=== PATIENT | male | born 1930 | race Caucasian/White ===

== ENCOUNTER → 2017-01-20 | Outpatient (CLI) | payer MEDICARE ==
[~2017-01-20] MED LIST: ALPR-236 PO; ASPI81TA43 PO; CHOL200014 PO; CLOP75TA33 PO; DICY10CA13 PO; FISH1CAP10 PO; LISI10TA7 PO; MULT-1243 PO; PANT20TA13 PO; SIMV40TA5 PO; VIT1TABL71 PO; [UNRECOGNIZED DRUG - CODE] PO
--- NOTE | 2017-01-20 12:42 | DI ---
Indication: ITS.REASON: M79.604 LEG PAIN; R89.9 ABNORMAL LAB US VENOUS DUPLEX, LOWER EXT RT: Comparison: None Technique: Real-time, color-flow and spectral Doppler analysis used to evaluate right lower extremity from the groin to the lower calf. Findings: Patient showed normal compression, augmentation and color flow Impression: No DVT currently appreciated. .
== END ==
LOC: IMA 11:50
PROVIDERS: ATTEND Family Medicine
DX: M79.604 Pain in right leg (principal); R89.9 Unspecified abnormal finding in specimens from other organs, systems and tissues

== ENCOUNTER → 2017-01-20 | Outpatient (CLI) | payer MEDICARE | LOC: LAB 10:12 | PROVIDERS: ATTEND Family Medicine | DX: R60.0 Localized edema (principal) | CPT/HCPCS: 36415; 85379 ==

== ENCOUNTER 2017-11-25 08:00 | Observation (INO) ==
[2017-11-25 08:03] VITALS: BMI 32.5
--- NOTE | 2017-11-25 08:08 | Cardiology History & Physical ---
History of Present Illness Chief complaint: Palpitations HPI: Eva is an 87 year old male who is well known to Dr. Hines with a history of PAF, carotid stenosis, CAD, CM, PVCs, HTN, HLD who reports he could feel his heart skipping and fluttering and was seen in the ED and sent to see Dr. Hines in the clinic. He is being admitted to observation for AAT on Amiodarone. Review of Systems - Constitutional Constitutional: Absent: chills, fatigue, fever(s) - EENMT Eyes: Absent: change in vision Balance: Absent: vertigo Mouth/Throat: Absent: sore throat - Cardiovascular Cardiovascular: Absent: chest pain, palpitations, syncope, dyspnea on exertion, orthopnea, edema Rhythm: Absent: abnormal rhythm Vascular: Absent: pedal edema - Respiratory Respiratory: Absent: cough, dyspnea, dyspnea on exertion - Gastrointestinal Gastrointestinal: Absent: abdominal pain, constipation, diarrhea, nausea, vomiting - Genitourinary Genitourinary: Absent: dysuria - Integumentary/Breasts Integumentary: Absent: rash - Neurological Neurological: Absent: dizziness - Endocrine Endocrine: Absent: palpitations PFSH Patient Stated Medical History Cardiac Arrhythmia Yes: A-FIB Hypertension Yes Gastroesophageal Reflux Yes Disease Other GI Yes: HERNIA Osteoarthritis Yes Shingles Yes Blood Transfusions Yes: WITH KNEE REPLACEMENT Clinic Medical History (Last Reviewed 08/10/17 @ 14:09 by LEESA Haley ) Hypertension (Chronic Medical) CAD (coronary artery disease) (Chronic Medical) Hypertriglyceridemia (Chronic Medical) GERD (gastroesophageal reflux disease) (Chronic Medical) Prostate cancer (Chronic Medical) Increased prostate specific antigen (PSA) velocity (Chronic Medical) Restless leg (Chronic Medical) Fatty tumor (Chronic Medical) Anemia (Chronic Medical) Colon tumor (Chronic Medical) Surgical History: cagb x6 arteries 1995 Family History: Family History (Last Updated 05/13/17 @ 09:11 by LEESA Bradford) Unknown High blood pressure Heart trouble Tumors - Social History Smoking status: Former smoker Substance use type: does not use Alcohol intake frequency: does not drink Medications Home Medications Medication Instructions Recorded Confirmed Type Cholecalciferol (Vitamin D3) 2,000 mg PO DAILY #0 09/08/16 11/25/17 History (Vitamin D3) apixaban (Eliquis)5 mg tablet 5 mg PO BID 08/27/17 11/25/17 History Dyazide (triamterene 37.5 1 cap PO DAILY #90 cap 10/07/17 11/25/17 Rx mg-hydrochlorothiazide 25 mg) capsule ALPRAZolam [Xanax] 0.5 mg PO HS 11/03/17 11/25/17 History Carvedilol 3.12 mg PO WS 11/03/17 11/25/17 History Lisinopril [Prinivil] 20 mg PO BID 11/03/17 11/25/17 History [place]-3/Dha/Epa/Fish Oil [Fish Oil 1 each PO DAILY 11/03/17 11/25/17 History 1,000 mg Softgel] Simvastatin [Zocor] 40 mg PO HS 11/03/17 11/25/17 History Carvedilol 6.25 mg PO DAILY 11/04/17 11/25/17 History Cetirizine HCl 10 mg PO BID 11/04/17 11/25/17 History Dicyclomine [Bentyl] 10 mg PO TID PRN 11/04/17 11/25/17 History Nitroglycerin [Nitrostat] 0.4 mg SL PRN PRN 11/04/17 11/24/17 History Pantoprazole Sodium 20 mg PO DAILY 11/04/17 11/25/17 History levothyroxine 25 mcg tablet 25 mcg PO DAILY #30 tab 11/11/17 11/25/17 Rx Hydrocodone/APAP *Ed Prepack* 1 tab PO Q6H PRN 11/24/17 11/24/17 History [[place] 5/325 *Ed Prepack*] Allergies Allergy/AdvReac Type Severity Reaction Status Date / Time Sulfa (Sulfonamide Allergy Mild RASH Verified 11/03/17 23:42 Antibiotics) Exam - Constitutional no acute distress, well nourished, cooperative - Routine HEENT Exam Head: Present: normocephalic ENT: Present: mucous membranes moist - Routine Neck Exam Absent: JVD, carotid bruit - Routine Chest/Breast/Axilla Exam Chest wall: Absent: tenderness - Routine Respiratory Exam Present: CTA bilaterally. Absent: rales, wheezes - Routine Cardiovascular Exam Present: RRR, S1, S2, no murmur. Absent: JVD - Routine Abdominal Exam Present: soft, normoactive bowel sounds - Routine Extremities Exam Present: no edema - Routine Skin Exam Present: intact, dry, warm - Routine Neurological Exam Present: alert, oriented X3 - Routine Psychiatric Exam Present: normal affect, normal thought process Results 11/25/17 08:15 11/26/17 04:00 Intake and Output 11/24/17 11/25/17 11/25/17 22:59 06:59 14:59 Other: Weight 214 lb 1.102 oz Patient Weight 11/26/17 06:59 Weight 214 lb 1.102 oz EKG interpretations - EKG EKG results cardiology: sinus rhythm EKG shows: bradycardia - Dysrhythmias Ventricular dysrhythmias: ventricular premature complexes - Blocks, axis, hypertrophy, ST abn AV and intraventricular conduction: left bundle branch block (fixed/intermittent , complete/incomplete) Hospital Course This is a general summary of the patient's hospital course. For more details refer to the complete medical record. Time spent with patient: 25 - 35 minutes Resuscitation Status: Full Code Assessment and Plan - Attestation Attestation Narrative: 11/26/17 07:48 Recommendation After examining the patient I agree with the above assessment. I am involved in the formulation of the patient's plan of care. - Assessment and Plan (1) Palpitations Current visit: Yes Status: Acute Feels heart skipping and fluttering - Denies chest pain or SOA - He is being admitted to observation for AAT on Amiodarone taper as ordered. - EKG Stat to confirm SR - CBC, CMP, TSH, MAG - Monitor cardiac telemetry - EKG in am (2) Paroxysmal atrial fibrillation Current visit: Yes Status: Acute He is being admitted to observation for AAT on Amiodarone. - EKG Stat to confirm SR - CBC, CMP, TSH, MAG - Monitor cardiac telemetry - EKG in am (3) Occlusion and stenosis of bilateral carotid arteries Current visit: Yes Status: Chronic Carotid duplex to be done outpatient (4) Atherosclerotic heart disease of [place] coronary artery without angina pectoris Current visit: Yes Status: Chronic Continue current therapy with routine monitoring (5) Cardiomyopathy Current visit: Yes Status: Chronic 2D echo before next visit (6) Ventricular premature depolarization Current visit: Yes Status: Chronic Continue current therapy, routine monitoring (7) Essential (primary) hypertension Current visit: Yes Status: Chronic Continue current therapy, routine monitoring (8) Mixed hyperlipidemia Current visit: Yes Status: Chronic PCP manages
[2017-11-25] MEDS ORDERED: AMIODARONE 200 MG TABLET PO SCH (09:00)
[2017-11-25] MEDS ORDERED: NITROGLYCERIN 0.4 MG SUBLINGUAL TABLET SL PRN (09:04)
[2017-11-25] MEDS ORDERED: DICYCLOMINE 10mg CAPSULE PO PRN (09:04)
[2017-11-25] MEDS ORDERED: POLYETHYL GLYCOL 3350 17gm PACKET PO PRN (17:00)
[2017-11-25] MEDS ORDERED: CARVEDILOL 6.25 MG TABLET PO SCH (17:30)
[2017-11-25] MEDS: LISINOPRIL 10 MG TABLET PO SCH (20:36)
[2017-11-25] MEDS: CETIRIZINE 10 MG TABLET PO SCH (20:39)
[2017-11-25] MEDS: APIXABAN 5 MG TABLET PO SCH (20:40)
[2017-11-25] MEDS: AMIODARONE 200 MG TABLET PO SCH (20:40)
[2017-11-25] MEDS ORDERED: SALINE FLUSH 10ml SYRINGE IV PRN (20:43)
[2017-11-25] MEDS ORDERED: SIMVASTATIN 40 MG TABLET PO SCH (21:00)
[2017-11-25] MEDS ORDERED: ALPRAZolam 0.5 MG TABLET PO SCH (21:00)
[2017-11-25] MEDS ORDERED: LISINOPRIL 20 MG TABLET PO SCH (21:00)
[2017-11-26] MEDS ORDERED: PANTOPRAZOLE 20 MG TABLET PO SCH (06:30)
[2017-11-26] MEDS ORDERED: LEVOTHYROXINE 25 MCG TABLET PO SCH (06:30)
[2017-11-26 07:09] VITALS: BP 138/68; RESP 18; TEMP 96.5; O2SAT 92
[2017-11-26 08:23] VITALS: PULSE 62
[2017-11-26] MEDS: AMIODARONE 200 MG TABLET PO SCH (08:25)
[2017-11-26] MEDS: APIXABAN 5 MG TABLET PO SCH (08:26)
[2017-11-26] MEDS: LISINOPRIL 10 MG TABLET PO SCH (08:26)
[2017-11-26] MEDS: CETIRIZINE 10 MG TABLET PO SCH (08:26)
[2017-11-26] MEDS ORDERED: OMEGA-3 ACID ESTERS 1 GM CAPSULE PO SCH (09:00)
[2017-11-26] MEDS ORDERED: TRIAMTERENE PO SCH (10:30)
[2017-11-26] MEDS ORDERED: HCTZ PO SCH (10:30)
== END 2017-11-26 10:08 | disposition home or self-care (01) ==
LOC: SRG
PROVIDERS: ADMIT Internal Medicine Cardiovascular Disease; ATTEND Internal Medicine Cardiovascular Disease